=== PATIENT | female | born 1955 | race Caucasian/White ===

== ENCOUNTER 2017-06-06 09:05 | Emergency (ER) | payer OTHER ==
[~2017-06-06] VITALS: Ht 154.9 cm; Wt 78.9 kg
[2017-06-06 09:06] VITALS: Ht 154.9 cm; Wt 78.9 kg
[2017-06-06 10:16] VITALS: BP 139/70
== END 2017-06-06 10:54 | disposition home or self-care (01) ==
LOC: ED 09:05
DX: S22.41XA Multiple fractures of ribs, right side, initial encounter for closed fracture (principal); I10 Essential (primary) hypertension; E11.9 Type 2 diabetes mellitus without complications; J45.909 Unspecified asthma, uncomplicated; E07.9 Disorder of thyroid, unspecified; Z88.5 Allergy status to narcotic agent; Z88.0 Allergy status to penicillin; Z88.2 Allergy status to sulfonamides; Z88.7 Allergy status to serum and vaccine; Z88.8 Allergy status to other drugs, medicaments and biological substances; Z88.6 Allergy status to analgesic agent; Z91.041 Radiographic dye allergy status; W06.XXXA Fall from bed, initial encounter; Y93.84 Activity, sleeping; Y99.8 Other external cause status; Y92.89 Other specified places as the place of occurrence of the external cause